=== PATIENT | female | born 1995 | race African-American/Black ===

== ENCOUNTER 2017-05-15 17:22 | Emergency (ER) | payer BC ==
[~2017-05-15] VITALS: Ht 162.6 cm; Wt 55.6 kg
[2017-05-15 17:27] VITALS: TEMP 36.8; Ht 162.6 cm; Wt 55.6 kg
[2017-05-15] MEDS ORDERED: SODIUM CHLORIDE 0.9% 1000ML 1,000 ML IV STA ×2 (18:42→22:20)
[2017-05-15] MEDS ORDERED: OPTIRAY 320 IV PRN (19:00)
[2017-05-15 19:22] LABS: BASO % 0.6 %; BASO ABS # 0.04 K/uL (0-0.2); EOS % 1.7 %; EOS ABS # 0.11 K/uL (0-0.5); HEMATOCRIT 36.5 % (37-47); HEMOGLOBIN 12.4 g/dL (12.0-16.0); IG# 0.01 K/uL (0.00-0.02); LYMPH % 33.4 %; MEAN CELL VOLUME 78.5 fL (80-100); MEAN CORPUSCULAR HEMOGLOBIN 26.7 pg (25-34); MONO % 5.6 %; MONO ABS # 0.37 K/uL (0.11-0.59); NEUT % 58.5 %; NEUT ABS # 3.86 K/uL (1.4-6.5); PLATELET COUNT 286 K/uL (130-400); RED CELL DISTRIBUTION WIDTH CV 14.5 % (11.5-14.5); RED CELL DISTRIBUTION WIDTH SD 41.6 fL (36.4-46.3); WHITE BLOOD COUNT 6.59 K/uL (4.8-10.8)
[2017-05-15 19:37] LABS: ALBUMIN 3.4 gm/dl (3.4-5.0); CALCIUM 8.8 mg/dl (8.5-10.1); CREATININE 0.72 mg/dl (0.60-1.20); POTASSIUM 3.6 mmol/L (3.5-5.1)
[2017-05-15 19:40] LABS: TOTAL PROTEIN 7.6 gm/dl (6.4-8.2)
--- NOTE | 2017-05-15 20:23 | DIAGNOSTIC IMAGING REPORT ---
CT ABD/PELVIS IV CONTRAST ONLY CLINICAL HISTORY: Right lower quadrant abdominal pain COMPARISON STUDY: None. TECHNIQUE: Following the IV administration of 93 mL of Optiray-320, CT scan of the abdomen and pelvis was performed from the lung bases to the proximal femurs. Images are reviewed in the axial, sagittal, and coronal planes. IV contrast was administered without complication. A dose lowering technique was utilized adhering to the principles of ALARA. CT DOSE: 249.26 mGy.cm FINDINGS: Lower chest: There are patchy dependent left basilar airspace opacities likely atelectatic Liver: The contrast-enhanced liver is normal in size, contour, and attenuation. There is no intrahepatic biliary ductal dilatation. The hepatic veins and portal veins are patent. Gallbladder: Unremarkable. Spleen: Normal in size and attenuation. Pancreas: Unremarkable. Adrenal glands: Unremarkable. Kidneys: There is symmetric renal cortical enhancement. The kidneys are normal in size without hydronephrosis. Bowel: There are no transition zones indicate bowel obstruction. Bowel evaluation is limited given the lack of orally administered contrast and the possibility of intra-abdominal fat. Given these limitations, there are no convincing findings to indicate acute appendicitis. There are no findings to indicate acute diverticulitis. Peritoneum: There is a small amount of free pelvic fluid. No free intraperitoneal air is visualized. Vasculature: The abdominal aorta is normal in course and caliber. Adenopathy: None. Pelvic viscera: The bladder, and pelvic viscera are unremarkable. Skeletal structures: No destructive osseous lesions are seen. IMPRESSION: 1. No acute intra-abdominal or pelvic findings 2. No evidence of bowel obstruction. No evidence of free air 3. No evidence of acute appendicitis. Appendiceal visualization is limited due to the lack of orally administered contrast and the paucity of intra-abdominal fat. Electronically signed by: Sadi Costello M.D. 05/15/2017 8:22 PM Dictated Date/Time: 05/15/2017 8:17 PM
[2017-05-15] MEDS ORDERED: KETOROLAC TROMETHAMINE 30 MG/ML VIAL IV STA (22:15)
[2017-05-15] MEDS ORDERED: BCPILLS PO (23:35)
[2017-05-15] MEDS ORDERED: IBUP-1451 PO (23:56)
--- NOTE | 2017-05-16 00:01 | EMERGENCY ROOM VISIT NOTE ---
History Report prepared by Mary: Sarah Faria Under the Supervision of: Dr. Shayne Adams M.D. First contact with patient: 18:39 Chief Complaint: ABDOMINAL PAIN Stated Complaint: PAIN IN LOWER RIGHT STOMACH Nursing Triage Summary: triage note: pt reports right abd pain since 1500 today. pt reports nausea. History of Present Illness The patient is a 22 year old female who presents to the Emergency Room with complaints of persistent RLQ abdominal pain starting a couple hours ago. She currently rates her discomfort as a 5/10 in severity. She has never this pain before. The pain worsens with breathing. She is able to eat. She last ate at 1000 this morning. She reports some nausea and diarrhea. She denies any vomiting , cough, congestion, urinary symptoms, fever, or chills. She is on oral contraception. She denies any chance of . Her last period was 3 weeks ago. She still has her appendix. She denies any medical problems. Source of History: patient Onset: couple hours ago Position: abdomen (RLQ) Symptom Intensity: 5/10 Quality: other (pain) Timing: other (persistent) Modifying Factors (Worsening): breathing Associated Symptoms: + nausea, + diarrhea, No fevers, No chills, No cough, No vomiting, No urinary symptoms Review of Systems See HPI for pertinent positives and negatives. A total of ten systems were reviewed and were otherwise negative. Past Medical & Surgical Medical Problems: (1) No significant past medical history Family History No pertinent family history stated. Social History Smoking Status: Never Smoker Occupation Status: [employer] student Current/Historical Medications Scheduled Control Pills ( Control Pills), 1 TAB PO DAILY Scheduled PRN Ibuprofen Tab (Motrin), 800 MG PO Q8H PRN for Pain Allergies Coded Allergies: Penicillins (Verified Allergy, Unknown, childhood allergy, 05/15/17) Physical Exam Vital Signs Date Time Temp Pulse Resp B/P (MAP) Pulse Ox O2 Delivery O2 Flow Rate FiO2 05/16/17 00:05 82 18 128/73 100 Room Air 05/15/17 22:30 79 16 118/73 100 Room Air 05/15/17 21:24 86 16 140/76 100 Room Air 05/15/17 19:18 96 18 113/67 100 Room Air 05/15/17 17:27 36.8 101 16 111/74 97 Physical Exam GENERAL: Awake, alert, uncomfortable-appearing, in no distress HENT: Normocephalic, atraumatic. Oropharynx unremarkable. EYES: Normal conjunctiva. Sclera non-icteric. NECK: Supple. No nuchal rigidity. FROM. No JVD. RESPIRATORY: Clear to auscultation. CARDIAC: Regular rate, normal rhythm. Extremities warm and well perfused. Pulses equal. ABDOMEN: Soft, non-distended. Tenderness over McBurney's point with positive psoas sign. Negative Rovsing's. No rebound or guarding. No masses. RECTAL: Deferred. MUSCULOSKELETAL: Chest examination reveals no tenderness. The back is symmetrical on inspection without obvious abnormality. There is no CVA tenderness to palpation. No joint edema. LOWER EXTREMITIES: Calves are equal size bilaterally and non-tender. No edema. No discoloration. NEURO: Normal sensorium. No sensory or motor deficits noted. SKIN: No rash or jaundice noted. Medical Decision & Procedures ER Provider Diagnostic Interpretation: Radiology results as stated below per my review and radiologist interpretation: CT ABD/PELVIS IV CONTRAST ONLY CLINICAL HISTORY: Right lower quadrant abdominal pain COMPARISON STUDY: None. TECHNIQUE: Following the IV administration of 93 mL of Optiray-320, CT scan of the abdomen and pelvis was performed from the lung bases to the proximal femurs. Images are reviewed in the axial, sagittal, and coronal planes. IV contrast was administered without complication. A dose lowering technique was utilized adhering to the principles of ALARA. CT DOSE: 249.26 mGy.cm FINDINGS: Lower chest: There are patchy dependent left basilar airspace opacities likely atelectatic Liver: The contrast-enhanced liver is normal in size, contour, and attenuation. There is no intrahepatic biliary ductal dilatation. The hepatic veins and portal veins are patent. Gallbladder: Unremarkable. Spleen: Normal in size and attenuation. Pancreas: Unremarkable. Adrenal glands: Unremarkable. Kidneys: There is symmetric renal cortical enhancement. The kidneys are normal in size without hydronephrosis. Bowel: There are no transition zones indicate bowel obstruction. Bowel evaluation is limited given the lack of orally administered contrast and the possibility of intra-abdominal fat. Given these limitations, there are no convincing findings to indicate acute appendicitis. There are no findings to indicate acute diverticulitis. Peritoneum: There is a small amount of free pelvic fluid. No free intraperitoneal air is visualized. Vasculature: The abdominal aorta is normal in course and caliber. Adenopathy: None. Pelvic viscera: The bladder, and pelvic viscera are unremarkable. Skeletal structures: No destructive osseous lesions are seen. IMPRESSION: 1. No acute intra-abdominal or pelvic findings 2. No evidence of bowel obstruction. No evidence of free air 3. No evidence of acute appendicitis. Appendiceal visualization is limited due to the lack of orally administered contrast and the paucity of intra-abdominal fat. Electronically signed by: Sadi Costello M.D. 05/15/2017 8:22 PM Dictated Date/Time: 05/15/2017 8:17 PM US Pelvic/Endovag: Uterus unremarkable. Ovaries unremarkable with small ovarian follicles. Blood flow seen to the bilateral ovaries. Pelvic free fluid which may be physiologic. Laboratory Results 05/15/17 19:08 Red Blood Count 4.65, Mean Corpuscular Volume 78.5, Mean Corpuscular Hemoglobin 26.7, Mean Corpuscular Hemoglobin Concent 34.0, Mean Platelet Volume 11.0, Neutrophils (%) (Auto) 58.5, Lymphocytes (%) (Auto) 33.4, Monocytes (%) (Auto) 5.6, Eosinophils (%) (Auto) 1.7, Basophils (%) (Auto) 0.6, Neutrophils # (Auto) 3.86, Lymphocytes # (Auto) 2.20, Monocytes # (Auto) 0.37, Eosinophils # (Auto) 0.11, Basophils # (Auto) 0.04 05/15/17 19:08 Test 05/15/17 18:50 05/15/17 19:08 Urine Color YELLOW Urine Appearance CLEAR (CLEAR) Urine pH >= 9.0 (4.5-7.5) Urine Specific [place] 1.018 (1.000-1.030) Urine Protein NEG (NEG) Urine Glucose (UA) NEG (NEG) Urine Ketones TRACE (NEG) Urine Occult Blood NEG (NEG) Urine Nitrite NEG (NEG) Urine Bilirubin NEG (NEG) Urine Urobilinogen NEG (NEG) Urine Leukocyte Esterase NEG (NEG) Urine Test NEG (NEG) White Blood Count 6.59 K/uL (4.8-10.8) Red Blood Count 4.65 M/uL (4.2-5.4) Hemoglobin 12.4 g/dL (12.0-16.0) Hematocrit 36.5 % (37-47) Mean Corpuscular Volume 78.5 fL (80-100) Mean Corpuscular Hemoglobin 26.7 pg (25-34) Mean Corpuscular Hemoglobin Concent 34.0 g/dl (32-36) Platelet Count 286 K/uL (130-400) Mean Platelet Volume 11.0 fL (7.4-10.4) Neutrophils (%) (Auto) 58.5 % Lymphocytes (%) (Auto) 33.4 % Monocytes (%) (Auto) 5.6 % Eosinophils (%) (Auto) 1.7 % Basophils (%) (Auto) 0.6 % Neutrophils # (Auto) 3.86 K/uL (1.4-6.5) Lymphocytes # (Auto) 2.20 K/uL (1.2-3.4) Monocytes # (Auto) 0.37 K/uL (0.11-0.59) Eosinophils # (Auto) 0.11 K/uL (0-0.5) Basophils # (Auto) 0.04 K/uL (0-0.2) RDW Standard Deviation 41.6 fL (36.4-46.3) RDW Coefficient of Variation 14.5 % (11.5-14.5) Immature Granulocyte % (Auto) 0.2 % Immature Granulocyte # (Auto) 0.01 K/uL (0.00-0.02) Anion Gap 9.0 mmol/L (3-11) Est Creatinine Clear Calc Drug Dose 107.7 ml/min Estimated GFR () 139.7 Estimated GFR (Non- 120.6 BUN/Creatinine Ratio 4.3 (10-20) Calcium Level 8.8 mg/dl (8.5-10.1) Total Bilirubin 0.7 mg/dl (0.2-1) Direct Bilirubin 0.2 mg/dl (0-0.2) Aspartate Amino Transf (AST/SGOT) 9 U/L (15-37) Alanine Aminotransferase (ALT/SGPT) 12 U/L (12-78) Alkaline Phosphatase 48 U/L (45-117) Total Protein 7.6 gm/dl (6.4-8.2) Albumin 3.4 gm/dl (3.4-5.0) Lipase 113 U/L (73-393) Laboratory results reviewed by me Medications Administered Medications (Trade) Dose Ordered Sig/Ignacio Route Start Time Stop Time Status Last Admin Dose Admin Sodium Chloride 1,000 ml @ 999 mls/hr Q1H1M STAT IV 05/15/17 18:42 05/15/17 19:42 DC 05/15/17 18:42 999 MLS/HR Ketorolac Tromethamine (Toradol Inj) 15 mg NOW STAT IV 05/15/17 22:15 05/15/17 22:21 DC 05/15/17 22:31 15 MG Sodium Chloride 1,000 ml @ 999 mls/hr Q1H1M STAT IV 05/15/17 22:20 05/15/17 23:20 DC 05/15/17 22:33 999 MLS/HR ED Course 1850: The patient was evaluated in room C10. A complete history and physical exam was performed. 2205: I reevaluated the patient. She is still having pain. She will go for ultrasound. 2356: I reevaluated the patient. Discussed results and discharge instructions: She verbalized understanding and agreement. The patient is ready for discharge. Medical Decision I reviewed the patient's past medical history, medications, and the nursing notes as described above. Differential diagnosis: Etiologies such as appendicitis, diverticulitis, PUD, biliary pathology, UTI, pancreatitis, obstruction, mesenteric ischemia, aortic pathology, infections, inflammatory bowel disease, renal colic, as well as others were entertained. The patient is a 22 y/o woman who presents to the emergency department with 2 hours of RLQ pain per HPI. On arrival the patient is in NAD, AFVSS. On exam the patient has +ttp over Macburney's point with +psoas. Labs unremarkable including WBC wnl. UA negative. Chemistry unremarkable. CT abd/pel negative for appendicitis although limited 2/2 patient's thin habitus with paucity of intra- abdominal fat. TVUS also unremarkable. Patient reassessed and feeling improved after IVF, toradol. I d/w patient findings including negative CT, which in setting of her reassuring lab tests makes appendicitis unlikely however should her sx return or become worse this should be considered. Moreover, patient denies any vaginal sx including itching, odor, and discharge. We agreed that she an f/u with [facility] should her sx continue than a pelvic exam should be considered. We attempted to add on GCC testing to her urine but required new sample and patient did not want to wait the additional 30 minutes required to provide this. Given patient's improvement and well-appearing after hydration and toradol unlikely to have emergent process at this time. Patient is approximately 2 weeks away from her menstrual cycle and so [place]z is possible. Findings and plan for follow-up reviewed with patient. Patient agreeable and d/c'd per discharge instructions. Medication Reconcilliation Current Medication List: was personally reviewed by me Blood Pressure Screening Patient's blood pressure: Normal blood pressure Blood pressure disposition: Did not require urgent referral Impression Primary Impression: RLQ abdominal pain Scribe Attestation The scribe's documentation has been prepared under my direction and personally reviewed by me in its entirety. I confirm that the note above accurately reflects all work, treatment, procedures, and medical decision making performed by me. Departure Information Dispostion Home / Self-Care Prescriptions Ibuprofen Tab (MOTRIN) 800 Mg Tab 800 MG PO Q8H Y for Pain for 7 Days, #21 TAB Prov: Shayne Adams M.D. 05/15/17 Referrals No Doctor, Assigned (PCP) Patient Instructions ED Abdominal Pain Unkn Cause, My [facility]
[2017-05-16 00:05] VITALS: BP 128/73; PULSE 82; O2SAT 100
--- NOTE | 2017-05-16 07:13 | DIAGNOSTIC IMAGING REPORT ---
ULTRASOUND OF THE PELVIS CLINICAL HISTORY: Right pelvic pain. COMPARISON STUDY: Pelvic CT dated 05/15/2017. TECHNIQUE: Real-time, grayscale, and color flow sonography of the pelvis is performed both transabdominally and endovaginally. Images are reviewed in the transverse and longitudinal planes. FINDINGS: Uterus: The uterus is normal in size and echotexture, measuring 6.3 x 3.7 x 4.5 cm. Endometrium: The endometrium is normal in appearance, and the endometrial stripe is normal in thickness measuring up to 0.1 cm. Ovaries: The ovaries are normal in size and morphology. The right ovary measures 3.5 x 1.7 x 2.0 cm and the left ovary measures 3.2 x 1.7 x 1.7 cm. Small follicles are seen bilaterally. Normal Doppler waveforms are shown within both ovaries. Pelvis: There is trace free fluid in the cul-de-sac. No concerning adnexal lesion is seen. IMPRESSION: 1. No acute sonographic abnormality is identified in the pelvis. 2. Trace free fluid in cul-de-sac is likely within physiologic limits. Electronically signed by: Ed Hawthorne M.D. 05/16/2017 7:12 AM Dictated Date/Time: 05/16/2017 7:10 AM
== END 2017-05-16 00:27 | disposition home or self-care (01) ==
LOC: C.EDB 17:26 → C.EDC 05-16 00:27
DX: R10.31 Right lower quadrant pain (principal); R11.0 Nausea; R19.7 Diarrhea, unspecified; Z79.3 Long term (current) use of hormonal contraceptives